=== PATIENT | male | born 1970 | race Caucasian/White ===

== ENCOUNTER 2020-09-19 09:44 | Emergency (ER) | payer OTHER ==
[~2020-09-19] VITALS: Ht 180.3 cm; Wt 90.2 kg
--- NOTE | 2020-09-19 10:45 | NUR ---
RN and MD assessment completed. Pt provided warm blanket and able to walk to and from restroom with steady gait. Pt states pain is intermittent and position of comfort with HOB adjusted.
--- NOTE | 2020-09-19 10:58 | NUR ---
Lab at bedside for draw.
[2020-09-19 11:04] LABS: MICROSCOPIC AUTO
[2020-09-19 11:15] LABS: BASOPHILS % (AUTO) 0 % (0-1); EOSINOPHILS % (AUTO) 0 % (1-7); LYMPHOCYTES % (AUTO) 8 % (22-44); MEAN CORPUSCULAR HEMOGLOBIN 30.7 pg (27.5-34.5); MEAN CORPUSCULAR HGB CONC 34.1 g/dL (33.2-36.2); MONOCYTES % (AUTO) 4 % (2-9); NEUTROPHILS % (AUTO) 87 % (42-75); PLATELET COUNT 257 x10^3/uL (130-400); RED BLOOD COUNT 5.13 x10^6/uL (4.38-5.82); RED CELL DISTRIBUTION WIDTH 13.4 % (9.4-14.8)
--- NOTE | 2020-09-19 11:15 | NUR ---
Pt to radiology for xray.
[2020-09-19 11:25] LABS: ALANINE AMINOTRANSFERASE 54 U/L (12-78); ALBUMIN 4.4 g/dL (3.4-5.0); ANION GAP 4 mmol/L (5-15); CALCIUM 9.7 mg/dL (8.5-10.1); CHLORIDE 107 mmol/L (98-107); CREATININE 1.19 mg/dL (0.7-1.3)
[2020-09-19 11:27] LABS: ALKALINE PHOSPHATASE 64 U/L (45-117); BILIRUBIN,TOTAL 0.7 mg/dL (0.2-1.0); TOTAL PROTEIN 7.6 g/dL (6.4-8.2)
--- NOTE | 2020-09-19 11:30 | NUR ---
Pt back to room with pain rated 5/10 at this time. Pt states he would accept pain meds if offered and request made to MD.
[2020-09-19] MEDS ORDERED: KETOROLAC 30 MG/1 ML ONE (11:43)
--- NOTE | 2020-09-19 11:56 | NUR ---
IV started with aseptic technique and IV med for pain given. inorganic chemical technician here to take pt over for exam as ordered.
[2020-09-19] MEDS ORDERED: KETOROLAC 30 MG/1 ML IVPush ONE (12:00)
[2020-09-19] MEDS ORDERED: SODIUM CHLORIDE FLUSH 10ML SYR IVF ONE (12:00)
--- NOTE | 2020-09-19 12:10 | NUR ---
Pt back from CT without acute change noted.
--- NOTE | 2020-09-19 12:22 | NUR ---
Lab results reviewed, awaiting CT results to post. Pt VSS and pain minimally decreased to 5/10 at this time on reassessment after biomedical analytical scientist. Pt states pain has changed after med and is like a sharp, squeezing pain that builds up and then releases in a rapid cycle-timing.
--- NOTE | 2020-09-19 12:48 | NUR ---
CT results reviewed and chart marked for recheck by MD at this time. Pt updated to where in process he stands.
--- NOTE | 2020-09-19 12:50 | NUR ---
at bedside for discussion of findings and plan of care.
[2020-09-19] MEDS ORDERED: OXYcodone/APAP 5/325MG TABLET PO ONE (13:00)
--- NOTE | 2020-09-19 13:00 | NUR ---
TOOK REPORT FROM WILDER BELLA, ASSUME CARE AT THIS TIME.
[2020-09-19] MEDS ORDERED: OXYcodone/APAP 5/325MG TABLET ONE (13:11)
[2020-09-19 13:43] VITALS: BP 124/74
== END 2020-09-19 13:46 | disposition home or self-care (01) ==
LOC: ED 13:20
DX: N13.2 Hydronephrosis with renal and ureteral calculous obstruction (principal); R31.9 Hematuria, unspecified
CPT/HCPCS: 36415; 74021; 74176; 80053; 81001; 83690; 85025; 96374; 99285; J1885